=== PATIENT | male | born 1970 | race Caucasian/White ===

== ENCOUNTER 2021-12-15 07:20 | Inpatient (IN) | payer MEDICAID, OTHER ==
[~2021-12-15] VITALS: Ht 198.1 cm; Wt 80.0 kg
[2021-12-15] MEDS ORDERED: SODIUM CHLORIDE 0.9% 1,000 ML IV ONE (07:45)
[2021-12-15] MEDS ORDERED: HYDROmorphone HCL 2 MG/ML VL/or syr IV ONE ×2 (07:45→11:45)
[2021-12-15] MEDS ORDERED: METOCLOPRAMIDE HCL 5MG/ml INJ 2ml VIAL IV ONE (07:45)
[2021-12-15] MEDS ORDERED: SODIUM CHLORIDE 0.9% 500 ML IVB ONE (07:45)
[2021-12-15 07:56] LABS: Basophils # (auto) 0 10 ^3/uL (0-0.2); Basophils % (auto) 0.3 % (0.0-2.0); Eosinophils # (auto) 0.1 10 ^3/uL (0-0.8); Eosinophils % (auto) 0.8 % (0.0-7.0); Hematocrit 40.8 % (41.0-53.0); Hemoglobin 13.8 g/dL (13.5-17.5); Lymphocytes # (auto) 0.8 10 ^3/uL (0.4-5.4); Lymphocytes % (auto) 9.7 % (10.0-50.0); Mean Corpuscular Hemoglobin 29.9 pg (28.0-32.0); Mean Corpuscular Hgb Conc. 33.8 g/dL (32.0-36.0); Mean Corpuscular Volume 88.5 fL (80.0-100.0); Monocytes # (auto) 0.7 10 ^3/uL (0-1.3); Monocytes % (auto) 7.5 % (0.0-12.0); Neutrophils # (auto) 7.2 10 ^3/uL (1.6-8.6); Neutrophils % (auto) 81.7 % (37.0-80.0); Red Blood Cells 4.61 10^6/uL (4.5-5.90); Red Cell Distribution Width 13.2 % (11.8-14.3); White Blood Cell 8.8 10^3/uL (4.4-10.8)
[2021-12-15 08:15] LABS: Albumin 3.1 g/dL (3.4-5.0); Calcium 9.6 mg/dL (8.5-10.1); Magnesium 2.1 mg/dL (1.6-2.6)
[2021-12-15 08:59] LABS: Bilirubin, Total 0.5 mg/dL (0.2-1.0); Total Protein 6.8 g/dL (6.4-8.2)
[2021-12-15 12:36] LABS: INR 1.02 (0.9-1.15); Partial Thromboplastin Time 30.7 sec (24.6-33.4)
[2021-12-15] MEDS ORDERED: SODIUM CHLORIDE 0.9% 1,000 ML IV SCH ×2 (14:45→15:00)
[2021-12-15] MEDS ORDERED: ACETAMINOPHEN 325 MG TAB PO PRN (14:45)
[2021-12-15] MEDS ORDERED: KETOROLAC TROMETH 30 MG/ML 1ML VIAL IV ONE (14:45)
[2021-12-15 14:48] LABS: Urine Bacteria NONE SEEN /hpf (None Seen); Urine Blood Negative /uL (Negative); Urine Budding Yeast MODERATE /hpf (None Seen); Urine Mucus FEW (None Seen); Urine WBC 28 /hpf (0 - 3); Urine WBC Clumps PRESENT /hpf (None Seen)
[2021-12-15] MEDS ORDERED: PANTOPRAZOLE 40 MG/10 ML VIAL INJ IV ONE (15:00)
[2021-12-15 15:21] LABS: Urine Specific Gravity > 1.050 (1.001-1.035)
[2021-12-15 18:37] VITALS: BP 116/70
[2021-12-15 20:25] VITALS: BP 116/70
[2021-12-15 22:00] VITALS: BP 116/70
[2021-12-15] MEDS: ASCORBIC ACID 500 MG TAB PO SCH (22:01)
[2021-12-15] MEDS: MORPHINE SULFATE INJ 2 MG/ml SYRG IV PRN (22:01)
[2021-12-15] MEDS: ONDANSETRON HCL 4 MG/2 ML VIAL IV PRN (22:11)
[2021-12-16] MEDS: KETOROLAC TROMETH 30 MG/ML 1ML VIAL IV PRN ×2 (01:32→14:39)
[2021-12-16 04:55] VITALS: BP 132/84
[2021-12-16] MEDS ORDERED: DOCU-94 PO (05:22)
[2021-12-16] MEDS ORDERED: HYDR-4902 PO (05:23)
[2021-12-16 06:54] LABS: Basophils # (auto) 0 10 ^3/uL (0-0.2); Basophils % (auto) 0.2 % (0.0-2.0); Eosinophils # (auto) 0.1 10 ^3/uL (0-0.8); Hematocrit 39.9 % (41.0-53.0); Hemoglobin 13.7 g/dL (13.5-17.5); Lymphocytes # (auto) 0.7 10 ^3/uL (0.4-5.4); Lymphocytes % (auto) 7.7 % (10.0-50.0); Mean Corpuscular Hemoglobin 29.8 pg (28.0-32.0); Mean Corpuscular Hgb Conc. 34.3 g/dL (32.0-36.0); Mean Corpuscular Volume 86.7 fL (80.0-100.0); Monocytes # (auto) 0.6 10 ^3/uL (0-1.3); Monocytes % (auto) 7.2 % (0.0-12.0); Neutrophils # (auto) 7.4 10 ^3/uL (1.6-8.6); Neutrophils % (auto) 83.9 % (37.0-80.0); Red Cell Distribution Width 12.9 % (11.8-14.3); White Blood Cell 8.8 10^3/uL (4.4-10.8)
[2021-12-16 07:11] LABS: Potassium 4.6 mmol/L (3.5-5.1)
[2021-12-16 07:19] LABS: Albumin 2.8 g/dL (3.4-5.0); Bilirubin, Total 0.3 mg/dL (0.2-1.0); Calcium 9.4 mg/dL (8.5-10.1)
[2021-12-16 08:30] VITALS: BP 132/81
[2021-12-16] MEDS: PANTOPRAZOLE 40 MG/10 ML VIAL INJ IV SCH (08:45)
[2021-12-16] MEDS: ZINC SULFATE 220mg CAP or TAB PO SCH (08:45)
[2021-12-16] MEDS: DOCUSATE SOD 100 MG CAP PO PRN (08:46)
[2021-12-16] MEDS: MULTIPLE VITAMIN TAB PO SCH (08:46)
[2021-12-16] MEDS: ASCORBIC ACID 500 MG TAB PO SCH ×2 (08:46→21:28)
[2021-12-16] MEDS: ENOXAPARIN SOD 40 MG/0.4 ML SYRINGE SC SCH (08:46)
[2021-12-16] MEDS ORDERED: metroNIDAZOLE 500MG/100ML 100 ML IV ONE (11:00)
[2021-12-16 12:30] VITALS: BP 125/81
[2021-12-16] MEDS ORDERED: GASTROGRAFIN 120 ML SOL ONE (13:04)
[2021-12-16] MEDS: ONDANSETRON HCL 4 MG/2 ML VIAL IV PRN ×2 (14:35→20:34)
[2021-12-16 16:30] VITALS: BP 130/84
[2021-12-16] MEDS: MORPHINE SULFATE INJ 2 MG/ml SYRG IV PRN (18:02)
[2021-12-16] MEDS: metroNIDAZOLE 500MG/100ML 100 ML IV SCH (21:31)
[2021-12-16 22:00] VITALS: BP 135/90
[2021-12-17] MEDS: ONDANSETRON HCL 4 MG/2 ML VIAL IV PRN ×2 (04:21→10:31)
[2021-12-17 05:00] VITALS: BP 103/43
[2021-12-17] MEDS: metroNIDAZOLE 500MG/100ML 100 ML IV SCH ×3 (05:34→21:49)
[2021-12-17 08:08] LABS: Basophils # (auto) 0 10 ^3/uL (0-0.2); Eosinophils # (auto) 0.1 10 ^3/uL (0-0.8); Lymphocytes # (auto) 0.9 10 ^3/uL (0.4-5.4); Lymphocytes % (auto) 10.1 % (10.0-50.0)
[2021-12-17 08:12] LABS: Basophils % (auto) 0.2 % (0.0-2.0); Hematocrit 47.1 % (41.0-53.0); Hemoglobin 15.3 g/dL (13.5-17.5); Mean Corpuscular Hemoglobin 28.7 pg (28.0-32.0); Mean Corpuscular Hgb Conc. 32.6 g/dL (32.0-36.0); Monocytes # (auto) 1.1 10 ^3/uL (0-1.3); Monocytes % (auto) 11.4 % (0.0-12.0); Neutrophils # (auto) 7.2 10 ^3/uL (1.6-8.6); Neutrophils % (auto) 77.3 % (37.0-80.0); Nucleated Red Blood Cells % 0.1 %; Red Blood Cells 5.35 10^6/uL (4.5-5.90); Red Cell Distribution Width 13.1 % (11.8-14.3); White Blood Cell 9.3 10^3/uL (4.4-10.8)
[2021-12-17 08:35] LABS: Potassium 4.5 mmol/L (3.5-5.1)
[2021-12-17 08:43] LABS: BUN/Creatinine Ratio 24.4; Calcium 10.3 mg/dL (8.5-10.1)
[2021-12-17 08:44] VITALS: BP 133/90
[2021-12-17] MEDS: KETOROLAC TROMETH 30 MG/ML 1ML VIAL IV PRN (10:31)
[2021-12-17] MEDS: PANTOPRAZOLE 40 MG/10 ML VIAL INJ IV SCH (10:32)
[2021-12-17] MEDS: ENOXAPARIN SOD 40 MG/0.4 ML SYRINGE SC SCH (10:32)
[2021-12-17] MEDS: MULTIPLE VITAMIN TAB PO SCH (10:33)
[2021-12-17] MEDS: ZINC SULFATE 220mg CAP or TAB PO SCH (10:33)
[2021-12-17] MEDS: ASCORBIC ACID 500 MG TAB PO SCH ×2 (10:33→21:49)
[2021-12-17 12:48] VITALS: BP 120/70
[2021-12-17 16:30] VITALS: BP 132/78
[2021-12-17] MEDS: SODIUM CHLORIDE 0.9% 1,000 ML IV SCH (21:09)
[2021-12-17] MEDS: MORPHINE SULFATE INJ 2 MG/ml SYRG IV PRN (21:50)
[2021-12-17 22:00] VITALS: BP 115/77
[2021-12-18] MEDS: MORPHINE SULFATE INJ 2 MG/ml SYRG IV PRN (03:05)
[2021-12-18 05:00] VITALS: BP 128/85
[2021-12-18] MEDS: metroNIDAZOLE 500MG/100ML 100 ML IV SCH ×3 (05:58→21:40)
[2021-12-18] MEDS: SODIUM CHLORIDE 0.9% 1,000 ML IV SCH ×2 (05:58→14:38)
[2021-12-18 06:29] LABS: Basophils # (auto) 0 10 ^3/uL (0-0.2); Basophils % (auto) 0.2 % (0.0-2.0); Eosinophils # (auto) 0.1 10 ^3/uL (0-0.8); Hematocrit 43.1 % (41.0-53.0); Hemoglobin 14.8 g/dL (13.5-17.5); Lymphocytes # (auto) 0.6 10 ^3/uL (0.4-5.4); Lymphocytes % (auto) 10.9 % (10.0-50.0); Mean Corpuscular Hemoglobin 29.3 pg (28.0-32.0); Mean Corpuscular Hgb Conc. 34.4 g/dL (32.0-36.0); Mean Corpuscular Volume 85.4 fL (80.0-100.0); Monocytes # (auto) 0.9 10 ^3/uL (0-1.3); Neutrophils % (auto) 71.9 % (37.0-80.0); Red Blood Cells 5.04 10^6/uL (4.5-5.90); Red Cell Distribution Width 13.1 % (11.8-14.3); White Blood Cell 5.5 10^3/uL (4.4-10.8)
[2021-12-18 06:36] LABS: Calcium 9.4 mg/dL (8.5-10.1); Potassium 4.4 mmol/L (3.5-5.1)
[2021-12-18 06:40] LABS: BUN/Creatinine Ratio 35.2
[2021-12-18 09:00] VITALS: BP 125/71
[2021-12-18] MEDS: MULTIPLE VITAMIN TAB PO SCH (10:16)
[2021-12-18] MEDS: ENOXAPARIN SOD 40 MG/0.4 ML SYRINGE SC SCH (10:16)
[2021-12-18] MEDS: ASCORBIC ACID 500 MG TAB PO SCH ×2 (10:16→21:40)
[2021-12-18] MEDS: PANTOPRAZOLE 40 MG/10 ML VIAL INJ IV SCH (10:16)
[2021-12-18] MEDS: ZINC SULFATE 220mg CAP or TAB PO SCH (10:16)
[2021-12-18 13:00] VITALS: BP 127/91
[2021-12-18] MEDS ORDERED: METHYLNALTREXONE BROMIDE 12 MG/0.6 ML VIAL SC ONE (13:00)
[2021-12-18] MEDS: D5W/SOD CHLO 0.9% 1,000 ML IV SCH ×2 (17:43→23:37)
[2021-12-18 18:03] VITALS: BP 128/83
[2021-12-18 20:00] VITALS: BP 108/69
[2021-12-18 22:00] VITALS: BP 105/69
[2021-12-19] VITALS (7 sets, daily range): BP systolic 104–122; BP diastolic 67–78
[2021-12-19] MEDS: metroNIDAZOLE 500MG/100ML 100 ML IV SCH ×3 (05:47→21:20)
[2021-12-19] MEDS: D5W/SOD CHLO 0.9% 1,000 ML IV SCH ×3 (07:02→21:21)
[2021-12-19] MEDS: PANTOPRAZOLE 40 MG/10 ML VIAL INJ IV SCH (10:30)
[2021-12-19] MEDS: ASCORBIC ACID 500 MG TAB PO SCH ×2 (10:30→21:20)
[2021-12-19] MEDS: ENOXAPARIN SOD 40 MG/0.4 ML SYRINGE SC SCH (10:30)
[2021-12-19] MEDS: ZINC SULFATE 220mg CAP or TAB PO SCH (10:30)
[2021-12-19] MEDS: MULTIPLE VITAMIN TAB PO SCH (10:30)
[2021-12-20] VITALS (7 sets, daily range): BP systolic 104–177; BP diastolic 61–80
[2021-12-20] MEDS: metroNIDAZOLE 500MG/100ML 100 ML IV SCH ×3 (06:18→22:03)
[2021-12-20 06:30] LABS: Hematocrit 42.3 % (41.0-53.0); Hemoglobin 14.3 g/dL (13.5-17.5); Mean Corpuscular Hemoglobin 29.2 pg (28.0-32.0); Mean Corpuscular Hgb Conc. 33.9 g/dL (32.0-36.0); Mean Corpuscular Volume 86.3 fL (80.0-100.0); White Blood Cell 5.6 10^3/uL (4.4-10.8)
[2021-12-20 06:37] LABS: Calcium 8.7 mg/dL (8.5-10.1); Magnesium 2.3 mg/dL (1.6-2.6); Potassium 3.5 mmol/L (3.5-5.1)
[2021-12-20] MEDS: D5W/SOD CHLO 0.9% 1,000 ML IV SCH ×3 (07:03→20:49)
[2021-12-20 07:11] LABS: Basophils % (manual) 0 (0.0-2.0); Blast Cells 0; Metamyelocytes % 0; Myelocytes % 0; Promyelocytes % 0; Reactive Lymphocytes 0
[2021-12-20 09:24] LABS: Band Neutrophils % (manual) 11; Eosinophils % (manual) 2 (0-7); Lymphocytes % (manual) 19 (10.0-50.0); Monocytes % (manual) 10 (0-12)
[2021-12-20] MEDS: PANTOPRAZOLE 40 MG/10 ML VIAL INJ IV SCH (10:03)
[2021-12-20] MEDS: ZINC SULFATE 220mg CAP or TAB PO SCH (10:04)
[2021-12-20] MEDS: ASCORBIC ACID 500 MG TAB PO SCH ×2 (10:04→22:03)
[2021-12-20] MEDS: MULTIPLE VITAMIN TAB PO SCH (10:04)
[2021-12-20] MEDS: ENOXAPARIN SOD 40 MG/0.4 ML SYRINGE SC SCH (10:04)
[2021-12-20] MEDS ORDERED: PPN PER PHARMACY 0 ML IV SCH (13:30)
[2021-12-20] MEDS ORDERED: DEXTROSE (50%) 50ML SYRG IV SCH (18:00)
[2021-12-20] MEDS: InsuLIN REG 1unit/0.01ml Soln (100units/ml) SC SCH (18:00)
[2021-12-20] MEDS: ACCU-CHEK COMFORT CURVE STRIP VI SCH (18:03)
[2021-12-20] MEDS: AMINO ACID INFUSION IN D5W 1,000 ML IV NR (20:00)
[2021-12-21] MEDS: ACCU-CHEK COMFORT CURVE STRIP VI SCH ×4 (00:13→17:25)
[2021-12-21 05:00] VITALS: BP_SYST 115; BP_SYST 124; BP_DIAS 72; BP_DIAS 73
[2021-12-21] MEDS: InsuLIN REG 1unit/0.01ml Soln (100units/ml) SC SCH ×4 (06:00→17:24)
[2021-12-21 06:03] LABS: Basophils # (auto) 0 10 ^3/uL (0-0.2); Basophils % (auto) 0.3 % (0.0-2.0); Eosinophils # (auto) 0.1 10 ^3/uL (0-0.8); Hematocrit 39.4 % (41.0-53.0); Hemoglobin 13.4 g/dL (13.5-17.5); Lymphocytes % (auto) 14.4 % (10.0-50.0); Mean Corpuscular Hemoglobin 29.7 pg (28.0-32.0); Mean Corpuscular Hgb Conc. 34.1 g/dL (32.0-36.0); Monocytes # (auto) 1.2 10 ^3/uL (0-1.3); Monocytes % (auto) 17.8 % (0.0-12.0); Neutrophils # (auto) 4.5 10 ^3/uL (1.6-8.6); Neutrophils % (auto) 66.5 % (37.0-80.0); Red Blood Cells 4.53 10^6/uL (4.5-5.90); Red Cell Distribution Width 12.9 % (11.8-14.3); White Blood Cell 6.8 10^3/uL (4.4-10.8)
[2021-12-21 06:23] LABS: Calcium 8.1 mg/dL (8.5-10.1); Potassium 3.2 mmol/L (3.5-5.1)
[2021-12-21] MEDS: metroNIDAZOLE 500MG/100ML 100 ML IV SCH ×3 (06:28→22:11)
[2021-12-21 06:29] LABS: Albumin 2.6 g/dL (3.4-5.0); BUN/Creatinine Ratio 11.7; Bilirubin, Total 0.3 mg/dL (0.2-1.0); Magnesium 2.1 mg/dL (1.6-2.6); Phosphorus 2.2 mg/dL (2.5-4.90); Total Protein 5.8 g/dL (6.4-8.2)
[2021-12-21] MEDS: D5W/SOD CHLO 0.9% 1,000 ML IV SCH ×3 (06:29→20:04)
[2021-12-21 09:00] VITALS: BP 118/73
[2021-12-21] MEDS: ENOXAPARIN SOD 40 MG/0.4 ML SYRINGE SC SCH (09:49)
[2021-12-21] MEDS: ZINC SULFATE 220mg CAP or TAB PO SCH (09:49)
[2021-12-21] MEDS: PANTOPRAZOLE 40 MG/10 ML VIAL INJ IV SCH (09:49)
[2021-12-21] MEDS: MULTIPLE VITAMIN TAB PO SCH (09:49)
[2021-12-21] MEDS: ASCORBIC ACID 500 MG TAB PO SCH ×2 (09:49→22:11)
[2021-12-21] MEDS ORDERED: POTASSIUM PHOSPHATE 44 MEQ in D5W 5% 250 ML IV ONE (10:45)
[2021-12-21 13:00] VITALS: BP 119/70
[2021-12-21 17:00] VITALS: BP 117/57
[2021-12-21] MEDS ORDERED: PPN PER PHARMACY IV NR ×10 (20:00)
[2021-12-21] MEDS: AMINO ACID INFUSION IN D5W 1,000 ML IV NR (20:06)
[2021-12-22] VITALS (8 sets, daily range): BP systolic 111–138; BP diastolic 73–88
[2021-12-22] MEDS: DOCUSATE SOD 100 MG CAP PO PRN ×2 (00:10→20:13)
[2021-12-22] MEDS: HYDROcodone-ACET 5/325MG TAB PO PRN ×2 (00:10→20:12)
[2021-12-22] MEDS: ACCU-CHEK COMFORT CURVE STRIP VI SCH ×4 (01:04→17:42)
[2021-12-22] MEDS: metroNIDAZOLE 500MG/100ML 100 ML IV SCH ×3 (04:59→21:47)
[2021-12-22] MEDS: InsuLIN REG 1unit/0.01ml Soln (100units/ml) SC SCH ×4 (05:05→17:41)
[2021-12-22 06:45] LABS: Basophils # (auto) 0 10 ^3/uL (0-0.2); Basophils % (auto) 0.2 % (0.0-2.0); Eosinophils # (auto) 0.1 10 ^3/uL (0-0.8); Eosinophils % (auto) 1.1 % (0.0-7.0); Lymphocytes # (auto) 1.2 10 ^3/uL (0.4-5.4); Mean Corpuscular Hemoglobin 29.6 pg (28.0-32.0); Mean Corpuscular Hgb Conc. 34.2 g/dL (32.0-36.0); Mean Corpuscular Volume 86.5 fL (80.0-100.0); Monocytes % (auto) 13.9 % (0.0-12.0); Neutrophils # (auto) 5.1 10 ^3/uL (1.6-8.6); Neutrophils % (auto) 68.8 % (37.0-80.0); Red Cell Distribution Width 12.7 % (11.8-14.3); White Blood Cell 7.4 10^3/uL (4.4-10.8)
[2021-12-22] MEDS: D5W/SOD CHLO 0.9% 1,000 ML IV SCH ×4 (07:00→17:40)
[2021-12-22 07:32] LABS: Albumin 2.4 g/dL (3.4-5.0); BUN/Creatinine Ratio 12.1; Bilirubin, Total 0.9 mg/dL (0.2-1.0); Calcium 7.8 mg/dL (8.5-10.1); Phosphorus 2.4 mg/dL (2.5-4.90); Potassium 3.2 mmol/L (3.5-5.1); Total Protein 5.4 g/dL (6.4-8.2)
[2021-12-22] MEDS: ASCORBIC ACID 500 MG TAB PO SCH ×2 (08:48→21:47)
[2021-12-22] MEDS: ZINC SULFATE 220mg CAP or TAB PO SCH (08:48)
[2021-12-22] MEDS: ENOXAPARIN SOD 40 MG/0.4 ML SYRINGE SC SCH (08:48)
[2021-12-22] MEDS: PANTOPRAZOLE 40 MG/10 ML VIAL INJ IV SCH (08:48)
[2021-12-22] MEDS ORDERED: POTASSIUM PHOSPHATE 44 MEQ in D5W 5% 250 ML IV ONE (11:00)
[2021-12-22] MEDS ORDERED: PPN PER PHARMACY IV NR ×11 (20:00)
[2021-12-23] MEDS: ACCU-CHEK COMFORT CURVE STRIP VI SCH ×2 (00:05→05:32)
[2021-12-23] MEDS: HYDROcodone-ACET 5/325MG TAB PO PRN (03:16)
[2021-12-23 05:00] VITALS: BP 119/84
[2021-12-23 05:18] LABS: Basophils # (auto) 0 10 ^3/uL (0-0.2); Basophils % (auto) 0.1 % (0.0-2.0); Eosinophils # (auto) 0.1 10 ^3/uL (0-0.8); Hematocrit 40.6 % (41.0-53.0); Lymphocytes # (auto) 1.2 10 ^3/uL (0.4-5.4); Lymphocytes % (auto) 13.7 % (10.0-50.0); Mean Corpuscular Hemoglobin 29.7 pg (28.0-32.0); Mean Corpuscular Hgb Conc. 34.6 g/dL (32.0-36.0); Monocytes % (auto) 11.2 % (0.0-12.0); Neutrophils # (auto) 6.6 10 ^3/uL (1.6-8.6); Red Blood Cells 4.72 10^6/uL (4.5-5.90); Red Cell Distribution Width 12.8 % (11.8-14.3); White Blood Cell 8.9 10^3/uL (4.4-10.8)
[2021-12-23 05:28] LABS: Albumin 2.6 g/dL (3.4-5.0); BUN/Creatinine Ratio 16.9; Calcium 8.1 mg/dL (8.5-10.1); Magnesium 2.3 mg/dL (1.6-2.6); Potassium 3.6 mmol/L (3.5-5.1)
[2021-12-23] MEDS: metroNIDAZOLE 500MG/100ML 100 ML IV SCH (05:31)
[2021-12-23] MEDS: InsuLIN REG 1unit/0.01ml Soln (100units/ml) SC SCH ×2 (05:34)
[2021-12-23 05:40] LABS: Bilirubin, Total 0.2 mg/dL (0.2-1.0); Phosphorus 2.7 mg/dL (2.5-4.90); Total Protein 5.8 g/dL (6.4-8.2)
[2021-12-23 09:28] VITALS: BP 103/58
[2021-12-23] MEDS: PANTOPRAZOLE 40 MG/10 ML VIAL INJ IV SCH (10:42)
[2021-12-23] MEDS: DOCUSATE SOD 100 MG CAP PO PRN (10:42)
[2021-12-23] MEDS: ASCORBIC ACID 500 MG TAB PO SCH (10:42)
[2021-12-23] MEDS: ZINC SULFATE 220mg CAP or TAB PO SCH (10:42)
[2021-12-23] MEDS: ENOXAPARIN SOD 40 MG/0.4 ML SYRINGE SC SCH (10:42)
== END 2021-12-23 11:00 | disposition left against medical advice (07) | DRG 252 ==
LOC: ER 07:20 → OVERFLOW 14:55 → WEST WING 17:49
PROVIDERS: ADMIT Nurse Practitioner Family; ATTEND Internal Medicine Pulmonary Disease
PROC: 0D9670Z Drainage of Stomach with Drainage Device, Via Natural or Artificial Opening (ICD-10-PCS; principal; 2021-12-17)
DX: K91.89 Other postprocedural complications and disorders of digestive system (principal); K56.609 Unspecified intestinal obstruction, unspecified as to partial versus complete obstruction; K59.01 Slow transit constipation; E87.6 Hypokalemia; Z20.822 Contact with and (suspected) exposure to COVID-19; Z53.29 Procedure and treatment not carried out because of patient's decision for other reasons; Z93.3 Colostomy status
CPT/HCPCS: 36415; 71045; 74018; 74176; 74177; 74250; 80048; 80053; 81001; 82150; 82962; 83690; 83735; 83880; 84100; 85007; 85025; 85027; 85610; 85730; 87081; 87426; 96361; 96374; 96375; 96376; C9113; G0378; J1885; J2212; J2405; J3490; J7042; J7060; J7131